=== PATIENT | male | born 1995 | race Caucasian/White ===

== ENCOUNTER 2018-10-23 15:19 | Emergency (ER) | payer OTHER ==
[~2018-10-23] VITALS: Ht 188 cm; Wt 100.0 kg
[2018-10-23] MEDS ORDERED: LIDOCAINE 2% MDV 20 ML VIAL SC ONE (16:45)
[2018-10-23 17:18] VITALS: BP 137/78
[2018-10-23] MEDS ORDERED: CLIN150C14 PO (17:20)
[2018-10-23] MEDS ORDERED: CLEO300C2 PO (17:26)
[2018-10-23] MEDS ORDERED: NEOSPORIN OINT 0.9 GM PKT (FLOOR STOCK) TOP ONE (17:30)
[2018-10-23] MEDS ORDERED: BACITRACIN OINT 30GM TOP PRN (17:30)
== END 2018-10-23 17:35 | disposition home or self-care (01) ==
LOC: M ED 15:19
DX: S61.215A Laceration without foreign body of left ring finger without damage to nail, initial encounter (principal); W26.0XXA Contact with knife, initial encounter; Y92.89 Other specified places as the place of occurrence of the external cause; Y99.0 Civilian activity done for income or pay; Z88.0 Allergy status to penicillin; F17.210 Nicotine dependence, cigarettes, uncomplicated

== ENCOUNTER 2019-02-10 08:44 | Emergency (ER) | payer OTHER ==
[~2019-02-10] VITALS: Ht 190.5 cm; Wt 112.1 kg
[~2019-02-10 08:44] MED LIST: CLEO300C2 PO; CLIN150C14 PO
--- NOTE | 2019-02-10 10:04 | REP ---
CT BRAIN WITHOUT CONTRAST: CT brain performed without IV contrast. Ventricles are normal in size and position with no midline shift or mass effect. Steiner white differentiation is well maintained. There is no acute intracranial hemorrhage or extra-axial fluid collection. Bone window examination is unremarkable. IMPRESSION :Negative noncontrast CT brain. Electronically Signed by Jesus Steiner MD 02/10/2019 11:27 P
[2019-02-10 10:09] LABS: IONIZED CALCIUM 4.7 MG/DL (4.5-5.3)
[2019-02-10 10:11] LABS: HEMATOCRIT 46.3 % (42.0-52.0); HEMOGLOBIN 16.3 g/dl (13.5-17.5); MEAN CORPUSCULAR HEMOGLOBIN 29.6 pg (27.0-33.0); MEAN CORPUSCULAR HGB CONC 35.2 g/dl (32.0-36.5); PLATELET COUNT, AUTOMATED 232 10^3/uL (150-450); RED BLOOD COUNT 5.51 10^6/uL (4.30-6.10); WHITE BLOOD COUNT 5.6 10^3/uL (4.0-10.0)
--- NOTE | 2019-02-10 10:22 | REP ---
CHEST, TWO VIEWS: There is no evidence of acute infiltrate. No pleural effusion is seen. The heart is normal in size. The mediastinal silhouette is unremarkable. The visualized osseous structures are intact. IMPRESSION: No acute pulmonary disease. Electronically Signed by Jesus Steiner MD 02/10/2019 11:27 P
[2019-02-10] MEDS ORDERED: e (11:02)
[2019-02-10] MEDS ORDERED: EEG (11:02)
[2019-02-10 11:14] VITALS: BP 137/84
== END 2019-02-10 11:15 | disposition home or self-care (01) ==
LOC: M ED 08:44
DX: R51 Headache (principal); R56.9 Unspecified convulsions; I10 Essential (primary) hypertension; Z79.899 Other long term (current) drug therapy; Z88.0 Allergy status to penicillin; F17.200 Nicotine dependence, unspecified, uncomplicated

== ENCOUNTER 2019-02-18 07:50 | Emergency (ER) | payer OTHER ==
[~2019-02-18] VITALS: Ht 190.5 cm; Wt 112.2 kg
[~2019-02-18 07:50] MED LIST changes: +EEG; +e
[2019-02-18] MEDS ORDERED: METOCLOPRAMIDE INJ 10MG/2ML VIAL (J2765) IV ONE (09:15)
[2019-02-18] MEDS ORDERED: ACETAMINOPHEN 500 MG TAB PO ONE (09:15)
--- NOTE | 2019-02-18 09:38 | REP ---
CT brain: 02/18/2019. Indication: Headache. Comparison: 02/10/2019. Technique: Unenhanced axial images of the brain were obtained from skull base to vertex. Findings: There is no acute intracranial hemorrhage, acute cortical infarction, mass effect or hydrocephalous. The visualized paranasal sinuses and mastoid air cells are clear. Impression: No acute intracranial process. Unremarkable brain. Electronically Signed by Giovanni Brantley DO 02/18/2019 09:30 A
[2019-02-18] MEDS ORDERED: KETOROLAC 30 MG/ML VIAL (J1885) IV ONE (09:45)
[2019-02-18 09:50] LABS: HEMATOCRIT 48.9 % (42.0-52.0); MEAN CORPUSCULAR HEMOGLOBIN 29.2 pg (27.0-33.0); MEAN CORPUSCULAR HGB CONC 34.8 g/dl (32.0-36.5); MEAN CORPUSCULAR VOLUME 83.9 fl (80.0-96.0); PLATELET COUNT, AUTOMATED 236 10^3/uL (150-450); RED BLOOD COUNT 5.83 10^6/uL (4.30-6.10); WHITE BLOOD COUNT 7.5 10^3/uL (4.0-10.0)
[2019-02-18 10:16] LABS: BLOOD UREA NITROGEN 17 MG/DL (7-18); C REACTIVE PROTEIN QUANTITATIV < 0.30 MG/DL (0.00-0.30); CALCIUM LEVEL 9.4 MG/DL (8.5-10.1); CARBON DIOXIDE LEVEL 23 MEQ/L (21-32); CHLORIDE LEVEL 107 MEQ/L (98-107); CREATININE FOR GFR 0.96 MG/DL (0.70-1.30); GLOMERULAR FILTRATION RATE > 60.0 (>60); GLUCOSE, FASTING 92 MG/DL (70-100); POTASSIUM SERUM 4.7 MEQ/L (3.5-5.1); SODIUM LEVEL 138 MEQ/L (136-145)
[2019-02-18] MEDS ORDERED: DEPA500T2 PO (12:34)
[2019-02-18 12:55] VITALS: BP 141/67
== END 2019-02-18 13:13 | disposition home or self-care (01) ==
LOC: M ED 07:50
DX: G43.909 Migraine, unspecified, not intractable, without status migrainosus (principal); R56.9 Unspecified convulsions; I10 Essential (primary) hypertension; Z79.899 Other long term (current) drug therapy; Z88.0 Allergy status to penicillin; F17.210 Nicotine dependence, cigarettes, uncomplicated
CPT/HCPCS: 36415; 70450; 80048; 85027; 86140; 96374; 96375; 99284; J1885; J2765

== ENCOUNTER → 2019-02-25 | Outpatient (CLI) | payer OTHER ==
[~2019-02-25] MED LIST changes: +DEPA500T2 PO
--- NOTE | 2019-02-25 22:46 | EEG ---
DATE OF PROCEDURE: 02/25/2019 REFERRING PHYSICIAN: Chad Reeves DIAGNOSIS: Seizure. EEG NUMBER: [id number] HISTORY: The patient is a 23-year-old man with episodes of blacking out, eyes rolling back and waking up with a headache. This EEG was done to rule out epileptic potential. He is currently taking Depakote. TECHNICAL DESCRIPTION: This digital EEG was recorded by 21 scalp, ear and two EKG electrodes and was reviewed in bipolar and referential montages following reformatting in 10-20 international electrode placement system. INTERPRETATION: The patient was noted to be in awake and drowsy states during this EEG. Resting awake background rhythm consisted of well-formed posterior dominant rhythm with anterior/posterior gradient comprising of 9 Hz alpha activity measuring 15-50 microvolts in amplitude, which was symmetric and reactive to eye opening. Attenuation of posterior dominant rhythm was seen during transition into drowsiness. Stage I and II sleep were reviewed and were symmetric bilaterally. Hyperventilation elicited mild theta slowing of background rhythm. Photic stimulation remained unremarkable. EKG revealed normal sinus rhythm. No focal, lateralizing or epileptiform abnormalities were seen. No relevant clinical activity was noted. EKG revealed normal sinus rhythm. CONCLUSION: This EEG in awake, drowsy states, stage I and II sleep is within normal limits.
== END ==
LOC: M SLEEP 08:15
PROVIDERS: ATTEND Physician Assistant Medical
DX: R56.9 Unspecified convulsions (principal)